=== PATIENT | female | born 1955 | race Caucasian/White ===

== ENCOUNTER → 2021-08-21 | Outpatient (CLI) | payer MEDICARE | LOC: M WHC 09:17 | PROVIDERS: ATTEND Internal Medicine | DX: Z12.31 Encounter for screening mammogram for malignant neoplasm of breast (principal) ==

== ENCOUNTER → 2022-03-03 | Outpatient (CLI) | payer MEDICARE | LOC: M WHC 09:03 | PROVIDERS: ATTEND Internal Medicine | DX: R92.1 Mammographic calcification found on diagnostic imaging of breast (principal); M81.0 Age-related osteoporosis without current pathological fracture | CPT/HCPCS: 77065; G0279 ==

== ENCOUNTER → 2022-03-04 | Outpatient (CLI) | payer MEDICARE | LOC: M WHC 11:16 | PROVIDERS: ATTEND Internal Medicine | DX: M81.0 Age-related osteoporosis without current pathological fracture (principal) ==

== ENCOUNTER 2023-04-09 08:23 | Observation (INO) | payer MEDICARE ==
[~2023-04-09] VITALS: Ht 165.1 cm; Wt 99.1 kg
[2023-04-09] MEDS ORDERED: DORZ10DR10 OU (08:34)
[2023-04-09] MEDS ORDERED: BIMA01SOL OU (08:34)
[2023-04-09] MEDS ORDERED: LOSA50TA5 PO (08:36)
[2023-04-09] MEDS ORDERED: SEMA0.257 SQ (08:36)
[2023-04-09 09:22] LABS: BASO % 0.1 % (0.0-1.0); EOS # 0.4 10^3/uL (0.0-0.5); EOS % 3.6 % (0.0-3.0); HEMATOCRIT 42.4 % (36.0-47.0); LYMPH % 18.1 % (24.0-44.0); MEAN CORPUSCULAR HEMOGLOBIN 30.7 pg (27.0-33.0); MEAN CORPUSCULAR HGB CONC 35.4 g/dl (32.0-36.5); MEAN CORPUSCULAR VOLUME 86.7 fl (80.0-96.0); MONO # 1.2 10^3/uL (0.0-0.8); MONO % 10.9 % (2.0-8.0); NEUTROPHILS # 7.5 10^3/uL (1.5-8.5); NEUTROPHILS % 66.9 % (36.0-66.0); PLATELET COUNT, AUTOMATED 317 10^3/uL (150-450); RED BLOOD COUNT 4.89 10^6/uL (4.00-5.40); WHITE BLOOD COUNT 11.2 10^3/uL (4.0-10.0)
[2023-04-09] MEDS ORDERED: NS 1,000 ML IV ONE ×2 (09:30→10:35)
[2023-04-09 09:50] LABS: ALBUMIN 3.4 G/DL (3.2-5.2); BILIRUBIN,DIRECT 0.4 MG/DL (<0.4); BILIRUBIN,TOTAL 1.1 MG/DL (0.3-1.2); TOTAL PROTEIN 7.4 G/DL (5.7-8.2)
[2023-04-09 09:53] LABS: RSV AMPLIFICATION NEGATIVE (NEGATIVE)
[2023-04-09] MEDS ORDERED: POTASSIUM CHLORIDE 10MEQ SR TABLET PO ONE ×2 (12:35→18:00)
[2023-04-09] MEDS ORDERED: KCL 10MEQ/100ML SWI (KRUN) 10 MEQ in IV 1 EA IV ONE (13:00)
[2023-04-09 13:27] LABS: MAGNESIUM LEVEL 1.8 MG/DL (1.8-2.4)
[2023-04-09] MEDS ORDERED: MED REC IN PROGRESS XX SCH (14:00)
[2023-04-09] MEDS ORDERED: ACETAMINOPHEN TAB 650MG DOSE (2X325MG) PO PRN (14:20)
[2023-04-09] MEDS ORDERED: NS 1,000 ML IV SCH (14:20)
[2023-04-09] MEDS ORDERED: **hydrALAZINE HCL** 25 MG TAB PO PRN (14:50)
[2023-04-09] MEDS: LR 1,000 ML IV SCH ×2 (15:35→20:12)
[2023-04-09 15:44] LABS: HEMOGLOBIN A1c 5.4 % (4.0-6.0)
[2023-04-09] MEDS ORDERED: ONDANSETRON 4MG 2ML VIAL IV PRN (15:55)
[2023-04-09] MEDS ORDERED: HOME MED LIST COMPLETE! XX SCH (16:00)
[2023-04-09] MEDS ORDERED: METAMUCIL (PSYLLIUM) PACKET PO ONE (16:05)
[2023-04-09 16:35] VITALS: BP 108/47; TEMP 97.9; O2SAT 99
[2023-04-09 16:45] LABS: CALCIUM LEVEL 7.6 MG/DL (8.3-10.6); CREATININE FOR GFR 2.02 MG/DL (0.55-1.30); GLOMERULAR FILTRATION RATE 26.1 (>45); POTASSIUM SERUM 3.5 MMOL/L (3.5-5.1)
[2023-04-09] MEDS ORDERED: MAG SULF 1GM/100ML (MAG RUN) 1 GM in IV 1 EA IV ONE (17:00)
[2023-04-09] MEDS: LOPERAMIDE 2 MG CAPLET PO PRN ×2 (17:13→20:11)
[2023-04-09] MEDS: LACTOBACILLUS ACIDOPHILUS CAP (BACID) PO SCH ×2 (17:13→20:11)
[2023-04-09] MEDS ORDERED: PANTOPRAZOLE 40MG VIAL IV SCH (21:00)
[2023-04-09 22:00] VITALS: BP 127/75; TEMP 97.9; O2SAT 100
[2023-04-09] MEDS: HEPARIN SOD (PORCINE) 5000UNITS/ML 1ML VIAL/SYRINGE SC SCH (22:29)
[2023-04-10] MEDS: LOPERAMIDE 2 MG CAPLET PO PRN (04:13)
[2023-04-10] MEDS: HEPARIN SOD (PORCINE) 5000UNITS/ML 1ML VIAL/SYRINGE SC SCH ×2 (05:34→13:15)
[2023-04-10 06:00] VITALS: BP 113/64; TEMP 97.7; O2SAT 98
[2023-04-10 06:18] LABS: BASO % 0.1 % (0.0-1.0); EOS # 0.5 10^3/uL (0.0-0.5); EOS % 5.1 % (0.0-3.0); HEMATOCRIT 36.7 % (36.0-47.0); LYMPH # 2.5 10^3/uL (1.5-5.0); LYMPH % 27.5 % (24.0-44.0); MEAN CORPUSCULAR HGB CONC 34.6 g/dl (32.0-36.5); MEAN CORPUSCULAR VOLUME 89.5 fl (80.0-96.0); MONO # 1.1 10^3/uL (0.0-0.8); MONO % 11.4 % (2.0-8.0); NEUTROPHILS # 5.1 10^3/uL (1.5-8.5); NEUTROPHILS % 55.4 % (36.0-66.0); PLATELET COUNT, AUTOMATED 245 10^3/uL (150-450); WHITE BLOOD COUNT 9.2 10^3/uL (4.0-10.0)
[2023-04-10 06:19] LABS: HEMOGLOBIN 12.7 g/dl (12.0-15.5)
[2023-04-10 06:40] LABS: CALCIUM LEVEL 8.1 MG/DL (8.3-10.6); CREATININE FOR GFR 1.76 MG/DL (0.55-1.30); GLOMERULAR FILTRATION RATE 30.6 (>45); POTASSIUM SERUM 3.8 MMOL/L (3.5-5.1)
[2023-04-10] MEDS: LACTOBACILLUS ACIDOPHILUS CAP (BACID) PO SCH ×2 (08:07→13:14)
[2023-04-10] MEDS ORDERED: META1POW PO ×2 (08:25→12:56)
[2023-04-10] MEDS ORDERED: RISATAB3 PO ×2 (08:25→12:56)
[2023-04-10] MEDS ORDERED: LOPE2CA PO ×2 (08:25→12:56)
[2023-04-10] MEDS ORDERED: METAMUCIL (PSYLLIUM) PACKET PO SCH ×2 (09:00)
[2023-04-10 14:00] VITALS: BP 127/61; TEMP 98.1; O2SAT 99
== END 2023-04-10 15:18 | disposition home or self-care (01) ==
LOC: M ED 08:23 → M ED INP 08:24 → M MSPAV 16:32
PROVIDERS: ADMIT Internal Medicine; ATTEND Internal Medicine
DX: R19.7 Diarrhea, unspecified (principal); N17.9 Acute kidney failure, unspecified; E87.6 Hypokalemia; M25.572 Pain in left ankle and joints of left foot; M19.072 Primary osteoarthritis, left ankle and foot; R53.1 Weakness; R63.0 Anorexia; I95.1 Orthostatic hypotension; I10 Essential (primary) hypertension; R73.03 Prediabetes; E66.9 Obesity, unspecified; Z68.36 Body mass index [BMI] 36.0-36.9, adult; Z79.899 Other long term (current) drug therapy; Z87.891 Personal history of nicotine dependence
CPT/HCPCS: 36415; 73610; 74176; 80047; 80048; 80076; 81001; 83036; 83605; 83690; 83735; 85025; 87086; 87507; 87631; 93005; 96361; 96365; 96367; 96372; 96375; 97161; 97530; 99285; C9113; G0378; J3475

== ENCOUNTER → 2025-03-09 | Outpatient (REF) | payer MEDICARE ==
[~2025-03-09] MED LIST: BIMA01SOL OU; DORZ10DR10 OU; LOPE2CA PO; LOSA50TA5 PO; META1POW PO; RISATAB3 PO; SEMA0.257 SQ
== END ==
LOC: M LAB REF 14:20
PROVIDERS: ATTEND Internal Medicine
DX: N18.32 Chronic kidney disease, stage 3b (principal); N39.0 Urinary tract infection, site not specified

== ENCOUNTER 2025-03-23 05:50 | Emergency (ER) | payer MEDICARE ==
[~2025-03-23] VITALS: Ht 165.1 cm; Wt 100.5 kg
[2025-03-23] MEDS ORDERED: FARX1TAB5 (07:41)
[2025-03-23] MEDS ORDERED: LOSA100T5 PO (07:41)
[2025-03-23 07:44] LABS: VENOUS BASE EXCESS -2.2 (-2.0-2.0); VENOUS HCO3 22.2 MMOL/L (23.0-27.0); VENOUS O2 SATURATION 90.7 % (60.0-80.0); VENOUS PARTIAL PRESSURE CO2 37.4 mmHg (38.0-50.0); VENOUS PARTIAL PRESSURE O2 59.6 mmHg (30.0-50.0); VENOUS PH 7.392 UNITS (7.330-7.430); VENOUS STANDARD HCO3 22.5 MMOL/L; VENOUS TOTAL CO2 23.4 MMOL/L (24.0-28.0)
[2025-03-23 07:50] LABS: BASO # 0.1 10^3/uL (0.0-0.2); BASO % 0.5 % (0.0-1.0); EOS # 0.1 10^3/uL (0.0-0.5); EOS % 0.3 % (0.0-3.0); LYMPH # 1.5 10^3/uL (1.5-5.0); LYMPH % 8.6 % (24.0-44.0); MONO # 1.2 10^3/uL (0.0-0.8); MONO % 6.7 % (2.0-8.0); NEUTROPHILS # 14.4 10^3/uL (1.5-8.5); NEUTROPHILS % 83.6 % (36.0-66.0); PLATELET COUNT, AUTOMATED 274 10^3/uL (150-450)
[2025-03-23 08:14] LABS: ACETONE/KETONE 0.11 MMOL/L (0.02-0.27)
[2025-03-23 08:15] LABS: C REACTIVE PROTEIN QUANTITATIV 8.4 MG/DL (<1.0); CALCIUM LEVEL 9.1 MG/DL (8.3-10.6); CARBON DIOXIDE LEVEL 23.0 MMOL/L (20-31); CHLORIDE LEVEL 101.0 MMOL/L (98-107); CREATININE FOR GFR 1.54 MG/DL (0.55-1.30); GLOMERULAR FILTRATION RATE 36.1 (>39); POTASSIUM SERUM 4.6 MMOL/L (3.5-5.1); SODIUM LEVEL 134.0 MMOL/L (136-145)
[2025-03-23 08:23] LABS: KETONE, URINE AUTO RFX NEGATIVE (NEGATIVE); MUCUS, URINE RFX SMALL (NEGATIVE); NITRITE, URINE AUTO RFX NEGATIVE (NEGATIVE); RBC, URINE AUTO RFX TNTC /HPF (0-3); SQUAM EPITHELIAL CELL UR AURFX 5 /HPF (0-6); YEAST LIKE CELL URINE AUTO RFX SMALL
[2025-03-23 08:24] LABS: LEUKOCYTE ESTERASE UR AUTO RFX 1+ (NEGATIVE); WBC, URINE AUTO RFX 23 /HPF (0-3)
[2025-03-23] MEDS ORDERED: ISOVUE-370 76% 100 ML VIAL As Ordered ONE (09:30)
[2025-03-23] MEDS ORDERED: CENT1TAB PO (11:15)
[2025-03-23] MEDS ORDERED: META28.32 PO (11:15)
[2025-03-23] MEDS ORDERED: HOME MED LIST COMPLETE! XX SCH (11:15)
[2025-03-23] MEDS: cefTRIAXone SOD 1 GM in DEXTROSE 5% (D5W) ADV/MINI-BAG 50 ML IV ONE (13:18)
[2025-03-23] MEDS ORDERED: CEFD1CAP9 PO (14:23)
[2025-03-23 14:30] VITALS: BP 131/76
[2025-03-23 14:34] VITALS: TEMP 98; O2SAT 97
== END 2025-03-23 14:44 | disposition home or self-care (01) ==
LOC: M ED 05:50
DX: N39.0 Urinary tract infection, site not specified (principal); J98.11 Atelectasis; E11.9 Type 2 diabetes mellitus without complications; I10 Essential (primary) hypertension; N18.9 Chronic kidney disease, unspecified; Z79.2 Long term (current) use of antibiotics; Z79.899 Other long term (current) drug therapy; Z79.810 Long term (current) use of selective estrogen receptor modulators (SERMs)
CPT/HCPCS: 71045; 71275; 74176; 80048; 81001; 82010; 82803; 83605; 85025; 85652; 86140; 87040; 87086; 87486; 87581; 87633; 87798; 96365; 99285; J0696; Q9967